=== PATIENT | female | born 1955 | race Caucasian/White ===

== ENCOUNTER → 2025-02-21 | Outpatient (CLI) | payer MEDICARE ==
--- NOTE | 2025-02-21 14:51 | CTL ---
EXAMINATION TYPE: CT Low Dose Lung DATE OF EXAM: 02/21/2025 8:16 AM COMPARISON: None. CLINICAL INDICATION: Female, 69 years old with history of Z12.2 LUNG CA SCR F17.210 CURRENT SMOKER, C urrent smoker 1/2 ppd x 58 years, History of tobacco use. TECHNIQUE: Low dose computed tomography scan was performed through the chest at 1 mm thick sections a nd reconstructed images in multiple planes at 1 mm and [address] DLP: 80.20 mGycm, CT CTDI: 2.0 mGy, Automated exposure control for dose reduction was used. CT DIAGNOSTIC QUALITY: Satisfactory FINDINGS: The heart is normal size without pericardial effusion. LAD and RCA coronary artery calcifications are present. 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 No thoracic lymphadenopathy by CT size criteria. Mild/moderate upper lung predominant emphysematous change. Mild diffuse bronchial wall thickening. So me strandy atelectasis or scarring at the posterior right lung base. No suspicious pulmonary nodules. Visualized upper abdomen shows [id number] atherosclerotic calcifications in the upper abdominal aorta. Bones: No osseous destructive process. IMPRESSION: 1. LungRADS 1, negative. No suspicious pulmonary nodules. 2. COPD with mild to moderate emphysema. Smoking cessation advised. 3. LAD and RCA coronary artery calcifications. CT LUNG RAD AND CT CHEST RECOMMENDATION: Lung-Rad 1 Negative: Continue annual screening with LDCT in 12 months. S Modifier (other clinically significant findings): None [facility], Workstation: [id number], 02/21/2025 2:48 PM
== END | disposition home or self-care (01) ==
LOC: RADCTMAIN 07:44
PROVIDERS: ATTEND Family Medicine
DX: Z12.2 Encounter for screening for malignant neoplasm of respiratory organs (principal); F17.210 Nicotine dependence, cigarettes, uncomplicated; I25.10 Atherosclerotic heart disease of native coronary artery without angina pectoris; J44.9 Chronic obstructive pulmonary disease, unspecified; J43.9 Emphysema, unspecified
CPT/HCPCS: 71271

== ENCOUNTER → 2025-03-07 | Outpatient (CLI) | payer MEDICARE ==
--- NOTE | 2025-03-08 10:03 | MM ---
Reason for Exam: Screening (asymptomatic). Last mammogram was performed 3 year(s) and 2 month(s) ago. Patient History: Menarche at age 11. Patient has no children. Left ovary removed at age 38. Hysterectomy at age 38. Postmenopausal. Sister had breast cancer at or over age 50. Risk Values: Samina 5 year model risk: 3.4%. NCI Lifetime model risk: 9.3%. Prior Study Comparison: 10/01/2020 Bilateral Screening Mammogram, [facility]. 01/21/2022 Bilateral Screening Mammogram, [facility]. Tissue Density: There are scattered areas of fibroglandular density. Findings: Analyzed By CAD. There are a few small benign-appearing round calcifications throughout the bilateral breasts redemonstrated. There is no suspicious group of microcalcifications or new suspicious mass in either breast. Overall Assessment: Benign, BI-RAD 2 Management: Screening Mammogram of both breasts in 1 year. . Patient should continue monthly self-breast exams. A clinical breast exam by your physician is recommended on an annual basis. This exam should not preclude additional follow-up of suspicious palpable abnormalities. Note on Samina scores and lifetime risk: 1. A Samina score greater than 3% is considered moderate risk. If this is the case, consider specialist referral to assess eligibility for a risk reducing agent. 2. If overall lifetime risk for the development of breast cancer is 20% or higher, the patient may qualify for future screening with alternating mammogram and breast MRI. [facility], , 03/08/2025 10:00 AM. Electronically signed and approved by: Al Swanson M.D.
== END | disposition home or self-care (01) ==
LOC: RADMAMWWP 09:27
PROVIDERS: ATTEND Family Medicine
DX: Z12.31 Encounter for screening mammogram for malignant neoplasm of breast (principal); R92.323 Mammographic fibroglandular density, bilateral breasts; Z78.0 Asymptomatic menopausal state; Z80.3 Family history of malignant neoplasm of breast
CPT/HCPCS: 77063; 77067